=== PATIENT | male | born 1955 | race Caucasian/White ===

== ENCOUNTER 2021-03-23 08:11 | Day surgery (SDC) | payer MEDICARE, OTHER ==
[~2021-03-23] VITALS: Ht 167.6 cm; Wt 85.5 kg
[~2021-03-23 08:11] MED LIST: BD ULTRA-FINE1 EAC3 MISC; GUAIFENESIN-CO118 ML PO; HYDROCHLOROTHIA25 GM MC; HYDROCHLOROTHIA25 MG PO; KLOR-CON M2020 MEQ PO; LIPITOR40 MG PO; LISINOPRIL20 MG PO; LOSARTAN POTAS100 MG PO; METFORMIN HCL500 MG PO; METOPROLOL TART25 MG PO; NORCO 5-325 TA1 EACH PO; NORVASC5 MG PO; PROAIR HFA8.5 GM IH; VITAMIN D31000 UNI1 PO
[2021-03-23] MEDS ORDERED: AMLODIPINE BESY10 MG PO (09:02)
[2021-03-23] MEDS ORDERED: METFORMIN HCL500 M1 PO (09:03)
[2021-03-23] MEDS ORDERED: ATORVASTATIN CA40 MG PO (09:03)
--- NOTE | 2021-03-23 10:25 | NUR ---
03/23/21 Luisito5 Ashley Lin 1019-PATIENT ARRIVED TO PACU ON 2L NC RR EVEN. PATIENT LAYING LEFT LATERAL ABDOMEN SOFT AROUSES TO VERBAL STIMULI. DENIES PAIN OR NAUSEA. PATIENT REPOSITIONED SELF TO BACK HOB ELEVATED.
--- NOTE | 2021-03-24 05:57 | OR ---
[facility] [address], [place] [address] Signed DATE OF OPERATION: 03/23/2021 SURGEON: Yuan Chang MD PREOPERATIVE DIAGNOSIS: Screening. POSTOPERATIVE DIAGNOSES: 1. Minimal sigmoid diverticulosis. 2. Prostate left greater than right. PROCEDURE: Colonoscopy without biopsy. ESTIMATED BLOOD LOSS: None. INDICATIONS: Brian is a 65-year-old gentleman asked to see me for his initial screening colonoscopy. He has no lower GI complaints and there is no family history of colon cancer or polyps. In the office, I gave him a pamphlet on colonoscopy. He understands the nature of that test. There is risk including, but not limited to gas bloating, crampy abdominal pain, bleeding, perforation requiring surgery, and missed diagnosis. We also discussed the need for IV conscious sedation. He had expressed understanding and wished to proceed. PROCEDURE IN DETAIL: Brian was taken into our endoscopy suite and placed in the left lateral decubitus position. He was given IV sedation with 150 mcg of fentanyl and 7 mg of Versed to cover the case. A digital rectal exam was performed. Not much in the way of any external hemorrhoids. A good sphincter tone. Prostate is mildly enlarged and indurated. The left side of the prostate is certainly more prominent than the right. He might review that with his primary care provider. The adult colonoscope had been introduced and advanced all the way around into the cecum under direct visualization of camera without difficulty. We could easily see the appendiceal orifice and the ileocecal valve. His prep was quite excellent. We were able to easily turn the scope and look down into the terminal ileum 5 or 6 cm and it appeared quite healthy. The scope was slowly withdrawn. We took pictures throughout for photodocumentation. We saw few moderate-sized diverticula in sigmoid colon. They were moderate in size, few in number, and scattered about. The rectum was unremarkable. Upon retroflexion of scope, there was no Electronically Signed By: YUAN CHANG MD 03/24/21 0557 PATIENT NAME: BRIAN FARAH OPERATIVE REPORT DATE OF : 53 REPORT #: [id number] PHYSICIAN: YUAN CHANG MD PCP: LA DAMIAN MD REPORT IS CONFIDENTIAL AND NOT TO BE RELEASED WITHOUT AUTHORIZATION [facility] [address] [place] [id number] Signed additional pathology noted above the anal canal. After this, the gas was suctioned out. The colonoscope removed. Brian tolerated the procedure quite well. RECOMMENDATIONS: Brian can review his prostate exam with his primary care provider. He can follow up in 10 years for repeat colonoscopy. MD LIZZ Martell/LARUENL /[id number] cc: MD Yuan Ruiz MD Copies: LA DAMIAN MD, ANDREW L MD ~ Electronically Signed By: YUAN CHANG MD 03/24/21 0557 PATIENT NAME: BRIAN FARAH OPERATIVE REPORT DATE OF : 53 REPORT #: [id number] PHYSICIAN: YUAN CHANG MD PCP: LA DAMIAN MD REPORT IS CONFIDENTIAL AND NOT TO BE RELEASED WITHOUT AUTHORIZATION
== END 2021-03-23 11:00 | disposition home or self-care (01) ==
LOC: DS 08:11 → OPS 08:11 → DS 09:45 → OPS 11:00
PROVIDERS: ATTEND Colon & Rectal Surgery
DX: Z12.11 Encounter for screening for malignant neoplasm of colon (principal); K57.30 Diverticulosis of large intestine without perforation or abscess without bleeding; E11.9 Type 2 diabetes mellitus without complications; I10 Essential (primary) hypertension
CPT/HCPCS: 99153; G0500; J2250; J3010; J7121

== ENCOUNTER 2023-04-06 21:03 | Inpatient (IN) | payer MEDICARE, OTHER ==
[~2023-04-06] VITALS: Ht 172.7 cm; Wt 79.2 kg
[~2023-04-06 21:03] MED LIST changes: +AMLODIPINE BESY10 MG PO; +ATORVASTATIN CA40 MG PO; +LO-DOSE ASPIRIN81 MG PO; +METFORMIN HCL500 M1 PO; +VENTOLIN HFA18 GM INH; -VITAMIN D31000 UNI1 PO; +VITAMIN D325 MCG PO
--- OUTSIDE RECORDS SUMMARY | 2023-04-06 21:11 | XMS ---
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 [facility] has no Care Guidelines for this patient. Sarah VISIT COUNT (12 MO.) [facility] TOTAL 2 NOTE: Visits indicate total known visits. ED/C VISIT TRACKING (12 MO.) [facility]2023 21[facility] COMPLAINT: - FEVER 04/02/2023 14:[address] [facility] TYPE: Emergency COMPLAINT: - FLU SYMPTOMS DIAGNOSES: - Acute bronchitis due to other specified organisms - Allergy status to other drugs, medicaments and biological substances - Cough, unspecified - Essential (primary) hypertension - prison (current) use of oral hypoglycemic drugs - Other [facility] (current) drug therapy - Personal history of nicotine dependence - Type 2 diabetes mellitus without complications INPATIENT VISIT TRACKING (12 MO.) No inpatient visits to display in this time frame [email or web address]
[2023-04-06 22:07] LABS: BASOPHILS 0.3 % (0-2); EOSINOPHILS 0.2 % (0-6); HEMATOCRIT 38.3 % (35.0-50.0); HEMOGLOBIN 12.6 g/dL (12.0-18.0); MCH 27.8 (27-36); MCHC 32.9 g/dl (30-36); MCV 84.7 fl (81-99); MONOCYTES 11.9 % (0-12); NEUTROPHILS 75.6 % (39-80); PLATELET COUNT 180 K/uL (140-440); RBC 4.52 M/ul (4.3-5.7); RDW 14.4 (10.5-15.0)
[2023-04-06 22:23] LABS: ALBUMIN 2.7 g/dL (3.4-5.0); ALBUMIN/GLOBULIN RATIO 0.6 (1.1-2.4); ANION GAP 16.6 (7-21); BILIRUBIN, TOTAL 0.5 ng/dL (0.2-1.0); BUN/CREATININE RATIO 19.31 (6.0-28.6); CALCIUM 8.9 mg/dL (8.5-10.1); CREATININE, SERUM 0.88 mg/dL (0.70-1.30); POTASSIUM 3.6 mmol/L (3.5-5.1); PROTEIN, TOTAL 7.2 g/dL (6.4-8.2)
[2023-04-06 22:47] LABS: INFLUENZA B NAA NEGATIVE (NEGATIVE); RESPIRATORY SYNCYTIAL VIR NAA NEGATIVE (NEGATIVE)
[2023-04-06] MEDS ORDERED: ALBUTEROL/IPRATROPIUM 3 ML NEB INH ONE (23:30)
[2023-04-06] MEDS ORDERED: OSELTAMIVIR PHOSPHATE 75 MG CAP PO ONE (23:30)
[2023-04-06] MEDS ORDERED: ondansetron HCL 4 MG/2 ML VIAL IV ONE (23:45)
[2023-04-07] VITALS (9 sets, daily range): BP systolic 123–140; BP diastolic 59–76
[2023-04-07] MEDS ORDERED: ACETAMINOPHEN 325 MG TAB PO PRN ×2 (01:30→10:00)
[2023-04-07] MEDS ORDERED: ALBUTEROL SULFATE 0.083% 3 ML VIAL INH PRN ×2 (01:30→10:00)
[2023-04-07] MEDS ORDERED: ondansetron HCL 4 MG/2 ML VIAL IV PRN ×2 (01:30→10:00)
[2023-04-07] MEDS ORDERED: IBLOOD GLUCOSE TEST STRIP 1 EA TEST XX PRN (10:00)
[2023-04-07] MEDS ORDERED: DEXTROSE 5% 1,000 ML IV PRN (10:00)
[2023-04-07] MEDS ORDERED: PROCHLORPERAZINE EDISYLATE 10 MG/2 ML VIAL IV PRN (10:00)
[2023-04-07] MEDS ORDERED: DEXTROSE 50 % 50 ML VIAL IV PRN ×2 (10:00)
[2023-04-07] MEDS ORDERED: GLUCAGON,HUMAN RECOMBINANT 1 MG/ML VIAL SUB-Q PRN (10:00)
[2023-04-07] MEDS ORDERED: ASPIRIN 81 MG TABEC PO SCH (10:08)
[2023-04-07] MEDS ORDERED: OSELTAMIVIR PHOSPHATE 75 MG CAP PO SCH (10:12)
[2023-04-07] MEDS ORDERED: GUAIFENESIN/CODEINE 5 ML UDC PO PRN (10:15)
[2023-04-07] MEDS ORDERED: BENZONATATE 100 MG CAP PO PRN (10:15)
[2023-04-07] MEDS ORDERED: AZITHROMYCIN 250 MG TAB PO ONE (10:15)
[2023-04-07] MEDS ORDERED: PHARMACY RENAL DOSE ADJUSTMENT 1 DOSE MISC PO SCH (12:00)
[2023-04-07] MEDS ORDERED: ALBUTEROL/IPRATROPIUM 3 ML NEB INH SCH (12:00)
[2023-04-07] MEDS ORDERED: IBLOOD GLUCOSE TEST STRIP 1 EA TEST VI SCH (12:00)
[2023-04-07] MEDS ORDERED: INSULIN LISPRO 100 UNIT/ML ML SUB-Q SCH (12:00)
[2023-04-07] MEDS ORDERED: MELATONIN 3 MG TAB PO PRN (21:00)
[2023-04-08] VITALS (7 sets, daily range): BP systolic 99–140; BP diastolic 57–72
[2023-04-08 05:32] LABS: BASOPHILS 0.3 % (0-2); EOSINOPHILS 0.8 % (0-6); HEMATOCRIT 35.6 % (35.0-50.0); HEMOGLOBIN 11.8 g/dL (12.0-18.0); MCHC 33.1 g/dl (30-36); MCV 84.7 fl (81-99); MONOCYTES 14.5 % (0-12); NEUTROPHILS 61.4 % (39-80); PLATELET COUNT 230 K/uL (140-440); RDW 14.3 (10.5-15.0)
[2023-04-08 05:48] LABS: ALBUMIN 2.4 g/dL (3.4-5.0); ALBUMIN/GLOBULIN RATIO 0.53 (1.1-2.4); ANION GAP 12.5 (7-21); BILIRUBIN, TOTAL 0.5 ng/dL (0.2-1.0); BUN/CREATININE RATIO 15.58 (6.0-28.6); CALCIUM 8.9 mg/dL (8.5-10.1); CREATININE, SERUM 0.77 mg/dL (0.70-1.30); PHOSPHORUS, INORGANIC 3.9 mg/dL (2.5-4.9); POTASSIUM 3.5 mmol/L (3.5-5.1); PROTEIN, TOTAL 6.9 g/dL (6.4-8.2)
[2023-04-08] MEDS ORDERED: ENOXAPARIN SODIUM 40 MG/0.4 ML SYR SUB-Q SCH (09:00)
[2023-04-08] MEDS ORDERED: AZITHROMYCIN 250 MG TAB PO SCH (09:00)
[2023-04-09 05:14] VITALS: BP 138/66
[2023-04-09 05:29] LABS: BASOPHILS 0.5 % (0-2); EOSINOPHILS 1.7 % (0-6); HEMATOCRIT 36.3 % (35.0-50.0); HEMOGLOBIN 12.2 g/dL (12.0-18.0); LYMPHOCYTES 21.1 % (24-44); MCH 28.4 (27-36); MCHC 33.5 g/dl (30-36); MCV 84.8 fl (81-99); MONOCYTES 15.9 % (0-12); NEUTROPHILS 60.8 % (39-80); PLATELET COUNT 300 K/uL (140-440); RBC 4.27 M/ul (4.3-5.7); RDW 13.8 (10.5-15.0)
[2023-04-09 05:45] LABS: ALBUMIN 2.6 g/dL (3.4-5.0); ALBUMIN/GLOBULIN RATIO 0.57 (1.1-2.4); ANION GAP 13.5 (7-21); BILIRUBIN, TOTAL 0.4 ng/dL (0.2-1.0); BUN/CREATININE RATIO 15.85 (6.0-28.6); CALCIUM 9.1 mg/dL (8.5-10.1); CREATININE, SERUM 0.82 mg/dL (0.70-1.30); POTASSIUM 3.5 mmol/L (3.5-5.1); PROTEIN, TOTAL 7.2 g/dL (6.4-8.2)
[2023-04-09 06:41] VITALS: BP 138/66
[2023-04-09 09:47] VITALS: BP 136/62
[2023-04-09] MEDS ORDERED: AZITHROMYCIN250 MG PO (10:47)
[2023-04-09] MEDS ORDERED: OSELTAMIVIR PHO75 MG PO (10:49)
[2023-04-09] MEDS ORDERED: BENZONATATE100 MG PO (10:49)
== END 2023-04-09 11:40 | disposition home or self-care (01) | DRG 193 ==
LOC: ED 21:03 → MS 21:04
PROVIDERS: Emergency Medicine; ADMIT Family Medicine; ATTEND Family Medicine
DX: J10.1 Influenza due to other identified influenza virus with other respiratory manifestations (principal); J96.01 Acute respiratory failure with hypoxia; E11.9 Type 2 diabetes mellitus without complications; I10 Essential (primary) hypertension; Z88.8 Allergy status to other drugs, medicaments and biological substances; Z79.899 Other long term (current) drug therapy; Z79.84 Long term (current) use of oral hypoglycemic drugs; Z79.82 Long term (current) use of aspirin; F12.90 Cannabis use, unspecified, uncomplicated; Z87.891 Personal history of nicotine dependence; Z66 Do not resuscitate; Z99.81 Dependence on supplemental oxygen; Z11.52 Encounter for screening for COVID-19
CPT/HCPCS: 36415; 71045; 80053; 83735; 84100; 85025; 85060; 87502; 94640; 94760; 94762; 96374; 99284-25; A9270; J1650; J1815; J2405; U0002